=== PATIENT | male | born 1955 | race Caucasian/White ===

== ENCOUNTER → 2023-09-04 | Outpatient (CLI) | payer OTHER | END | disposition home or self-care (01) | LOC: RESCLI 10:40 | PROVIDERS: ATTEND Internal Medicine | DX: I48.0 Paroxysmal atrial fibrillation (principal); I50.30 Unspecified diastolic (congestive) heart failure; E78.2 Mixed hyperlipidemia; Z79.899 Other long term (current) drug therapy; Z82.49 Family history of ischemic heart disease and other diseases of the circulatory system ==